=== PATIENT | female | born 1965 ===

== ENCOUNTER 2019-05-01 17:58 | Emergency (ER) | payer MEDICARE ==
[2019-05-01 18:15] VITALS: BP 120/68
--- NOTE | 2019-05-01 18:16 | Emergency Department Report ---
Chief Complaint: Medical Clearance Stated Complaint: MENTAL EVAL Time Seen by Provider: 05/01/19 18:10 - HPI History of Present Illness: This is a 53-year-old female nontoxic well in appearance with no signs of distress presents to the ED for HIV and Hepitatis testing. 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 Patient denies ayn contact with HIV or Hep. Patient denies any symptoms or complaints. Patient stated she just wants to be tested. Denies any fever, chills, headache, nausea, vomiting, numbness, tingling, back pain, urinary symptoms. chest pain or SOB. MSE screening note: Focused history and physical exam performed. Due to findings the following was ordered: ED Medical Decision Making - Medical Decision Making Patient is referred to multiple locations that does perform HIV/HEP testing, as in the ED patient denies any symptoms and just wants to be tested because she stated was "touching the dirty correction cell". Patient has been given address and referrals print outs with numbers and locations. Currently patient is stable and has no complaints or symptoms. ED Disposition for MSE Clinical Impression: Referral needed Disposition: [id number] TO HOME OR SELFCARE Is pt being admited?: No Does the pt Need Aspirin: No Condition: Stable Additional Instructions: You have been given several referrals that can help with you with those testing. Please call them and follow-up with them. Follow-up with a primary care doctor or if symptoms worsen and continue return to the emergency department as soon as possible. Referrals: PRIMARY [facility] [Referring] - 3-5 Days MADELYN VARNER MD [Staff Physician] - 3-5 Days [facility] [place] [Outside] - 3-5 Days [facility] [Outside] - 3-5 Days
== END 2019-05-01 19:00 | disposition home or self-care (01) ==
LOC: ED 17:58
DX: Z11.3 Encounter for screening for infections with a predominantly sexual mode of transmission (principal)
CPT/HCPCS: 99281